=== PATIENT | female | born 1980 | race Caucasian/White ===

== ENCOUNTER → 2024-09-04 14:26 | Outpatient (REF) | payer BC, SELFPAY | LOC: MRI 14:26 | PROVIDERS: ATTENDING PHYSICIAN Psychiatry & Neurology Neurology | DX: G93.5 Compression of brain (principal) | CPT/HCPCS: 70551 ==

== ENCOUNTER → 2024-12-19 07:15 | Outpatient (REF) | payer BC, SELFPAY | LOC: HWWDC 07:15 | PROVIDERS: ATTENDING PHYSICIAN Nurse Practitioner Adult Health | DX: Z12.31 Encounter for screening mammogram for malignant neoplasm of breast (principal) | CPT/HCPCS: 77063; 77067 ==